=== PATIENT | female | born 1975 | race Caucasian/White ===

== ENCOUNTER 2022-06-25 10:19 | Emergency (ER) | payer OTHER ==
[~2022-06-25] VITALS: Ht 162.6 cm; Wt 83.9 kg
[2022-06-25 10:25] VITALS: BP 130/66
--- NOTE | 2022-06-25 10:34 | NUR ---
vince dutta swabbed at this time
--- NOTE | 2022-06-25 10:50 | NUR ---
47 y/o female bib self, pt has sick contacts at home and is requiring at this time to have a covid test. pt denies cough, fever, chills, sob or cp at this time. pmh: denies allergy: dilaudid med: denies
[2022-06-25 11:01] VITALS: BP 130/66
--- NOTE | 2022-06-25 11:01 | NUR ---
Patient discharged with v/s stable. Written and verbal after care instructions given and explained. Patient verbalized understanding. Ambulatory with steady gait. All questions addressed prior to discharge. Advised to follow up with PMD.
== END 2022-06-25 11:01 | disposition home or self-care (01) ==
LOC: MED 10:19
DX: J06.9 Acute upper respiratory infection, unspecified (principal); Z20.822 Contact with and (suspected) exposure to COVID-19
CPT/HCPCS: 99283